=== PATIENT | female | born 1990 | race Caucasian/White ===

== ENCOUNTER 2017-08-13 01:40 | Inpatient (IN) | payer OTHER ==
[2017-08-13] MEDS ORDERED: Oxytocin in LR* 20 UNITS/1,000 ML BAG IVPB ONE (03:17)
[2017-08-13 03:49] LABS: EGFR Non-African American 116.8 (>60); Uric Acid 3.9 mg/dL (2.3-6.6)
[2017-08-13 03:50] LABS: ABS Basophils 0.1 10^3/ul (0-0.2); ABS Eosinophils 0 10^3/ul (0-0.6); ABS Lymphocytes 1.3 10^3/ul (1.0-4.8); ABS Monocytes 0.6 10^3/ul (0-0.8); ABS Nucleated RBC 0 10^3/ul; Eosinophil % 0.4 % (0-6); Hematocrit 35 % (35-47); Hemoglobin 11.9 g/dl (12.0-16.0); Lymphocyte % 13.1 % (25-47); Mean Corpuscular HGB Conc 34 g/dl (31-36); Mean Corpuscular Hemoglobin 29 pg (27-31); Mean Corpuscular Volume 85 fL (80-97); Mean Platelet Volume 9 um3 (7.4-10.4); Nucleated Red Blood Cells % 0; Platelet Count 236 10^3/ul (150-450); Red Blood Count 4.17 10^6/ul (4.0-5.4); Red Cell Distribution Width 14 % (10.5-15)
[2017-08-13] MEDS ORDERED: OBEPIDURAL* 250 ML EPIDURAL ONE (04:31)
[2017-08-13] MEDS ORDERED: Hetastarch in NS* 200 ML IV PRN (05:33)
[2017-08-13] MEDS ORDERED: EPHEDrine (Pressors)* 50 MG/ML VIAL IV PUSH PRN ×2 (05:33)
[2017-08-13] MEDS ORDERED: Sodium Citrate/Citric Acid* 15 ML UDC PO PRN (05:33)
[2017-08-13] MEDS ORDERED: Famotidine TAB* 20 MG PO PRN (05:33)
[2017-08-13] MEDS ORDERED: Phenylephrine IV* 40 MCG/ML 10 ML SYRINGE IV PUSH PRN ×2 (05:33)
[2017-08-13] MEDS ORDERED: OBEPIDURAL* 250 ML EPIDURAL SCH (06:00)
[2017-08-13] MEDS ORDERED: Misoprostol TAB* 200 MCG ONE (17:41)
[2017-08-13] MEDS ORDERED: Ibuprofen TAB* 600 MG ONE (17:42)
[2017-08-13] MEDS ORDERED: Acetaminophen TAB* 325 MG PO PRN (17:43)
[2017-08-13] MEDS ORDERED: Witch Hazel PAD* JAR TOPICAL PRN (17:43)
[2017-08-13] MEDS ORDERED: Misoprostol TAB* 200 MCG PR ONE (17:43)
[2017-08-13] MEDS ORDERED: Glycerin ADULT SUPP PR PRN (17:43)
[2017-08-13] MEDS ORDERED: Dibucaine 1% 28.35 GM TUBE PR PRN (17:43)
[2017-08-13] MEDS: Ibuprofen TAB* 600 MG PO PRN (17:48)
[2017-08-13] MEDS ORDERED: Oxytocin in LR* 20 UNITS/1,000 ML BAG IVPB SCH (18:00)
[2017-08-13] MEDS ORDERED: Simethicone TAB* 80 MG TAB.CHEW PO SCH (21:00)
[2017-08-13] MEDS: Docusate CAP* 100 MG PO SCH (21:10)
[2017-08-14] MEDS: Ibuprofen TAB* 600 MG PO PRN ×4 (00:15→19:29)
[2017-08-14] MEDS ORDERED: Ferrous Gluconate TAB* 324 MG TAB PO SCH ×2 (09:00→12:00)
[2017-08-14] MEDS: Docusate CAP* 100 MG PO SCH ×3 (09:28→21:01)
[2017-08-14 10:51] LABS: ABS Basophils 0.1 10^3/ul (0-0.2); ABS Eosinophils 0 10^3/ul (0-0.6); ABS Lymphocytes 1.6 10^3/ul (1.0-4.8); ABS Neutrophils 14.3 10^3/ul (1.5-7.7); ABS Nucleated RBC 0 10^3/ul; Eosinophil % 0.1 % (0-6); Hematocrit 28 % (35-47); Hemoglobin 9.1 g/dl (12.0-16.0); Lymphocyte % 9.2 % (25-47); Mean Corpuscular HGB Conc 33 g/dl (31-36); Mean Corpuscular Hemoglobin 28 pg (27-31); Mean Corpuscular Volume 86 fL (80-97); Mean Platelet Volume 9 um3 (7.4-10.4); Nucleated Red Blood Cells % 0; Platelet Count 210 10^3/ul (150-450); Red Blood Count 3.21 10^6/ul (4.0-5.4); Red Cell Distribution Width 14 % (10.5-15)
[2017-08-14] MEDS ORDERED: Ferrous Gluconate TAB* 324 MG TAB ONE (11:39)
[2017-08-14] MEDS: Ferrous Gluconate TAB* 324 MG TAB PO SCH (21:02)
[2017-08-14 21:08] VITALS: BP 130/72
[2017-08-15] MEDS: Ferrous Gluconate TAB* 324 MG TAB PO SCH (07:59)
[2017-08-15] MEDS: Ibuprofen TAB* 600 MG PO PRN (08:00)
[2017-08-15] MEDS: Docusate CAP* 100 MG PO SCH (08:00)
== END 2017-08-15 10:39 | disposition home or self-care (01) | DRG 560 ==
LOC: MCHOBOUT 01:40 → MCHOB 02:18
PROVIDERS: ADMIT Midwife; ATTEND Midwife
PROC: 10E0XZZ Delivery of Products of Conception, External Approach (ICD-10-PCS; principal; 2017-08-13)
PROC: 0KQM0ZZ Repair Perineum Muscle, Open Approach (ICD-10-PCS; 2017-08-13)
DX: O69.81X0 Labor and delivery complicated by cord around neck, without compression, not applicable or unspecified (principal); O71.4 Obstetric high vaginal laceration alone; D64.9 Anemia, unspecified; O90.81 Anemia of the puerperium; Z3A.39 39 weeks gestation of pregnancy; Z37.0 Single live birth
CPT/HCPCS: 36415; 80053; 84112; 84550; 85025; 86850; 86900; 86901; A9270-GY